=== PATIENT | male | born 1930 | race African-American/Black ===

== ENCOUNTER 2019-12-01 13:45 | Inpatient (IN) | payer MEDICARE ==
[~2019-12-01] VITALS: Ht 188 cm; Wt 94.1 kg
[2019-12-01] MEDS ORDERED: NORVASC10 MG PO ×2 (13:57→18:33)
[2019-12-01] MEDS ORDERED: ASPIRIN81 MG PO (13:58)
[2019-12-01] MEDS ORDERED: ISOSORBIDE DINI20 MG PO ×2 (13:58→18:33)
[2019-12-01] MEDS ORDERED: NITROQUICK0.4 MG SL (13:58)
[2019-12-01] MEDS ORDERED: HYDRALAZINE HCL25 MG PO ×2 (13:59→18:33)
[2019-12-01] MEDS ORDERED: COREG12.5 MG PO ×2 (13:59→18:34)
[2019-12-01] MEDS ORDERED: LIPITOR40 MG PO ×2 (13:59→18:34)
[2019-12-01] MEDS ORDERED: BRILINTA90 MG PO ×2 (14:00→18:32)
[2019-12-01 14:20] LABS: HEMATOCRIT 40.8 % (42.0-54.0); HEMOGLOBIN 13.4 g/dL (13.5-17.5); MCH 29.6 pg (26.0-34.0); MCHC 32.8 g/dL (31.0-37.0); MCV 90.1 fL (80.0-100.0); MEAN PLATELET VOLUME 10.7 fL (7.4-10.4); PLATELET COUNT 208 10x3/uL (130-400); RBC 4.53 10x6/uL (4.20-6.10); RDW 14.3 % (11.5-14.5); WBC 5.6 10x3/uL (4.8-10.8)
[2019-12-01 14:29] LABS: CALC OSMOLALITY 271 mosm/kg (275-300); CALCIUM 9.1 mg/dL (8.5-10.1); CARBON DIOXIDE 24.5 mmol/L (21.0-32.0); CHLORIDE - SERUM 102 mmol/L (98-107); CREATININE - SERUM 1.7 mg/dL (0.6-1.3); GLUCOSE 107 mg/dL (74-106); POTASSIUM - SERUM 4.4 mmol/L (3.5-5.1); SODIUM 134 mmol/L (136-145); UREA NITROGEN 25 mg/dL (7-18); eGFR NON AFRICAN AMERICAN 41 mL/min (90-120)
[2019-12-01 14:37] LABS: APTT 31.2 SECONDS (22.8-39.4); INR 0.96 (0.85-1.17); PROTIME 12.8 SECONDS (11.6-15.0)
[2019-12-01 14:44] LABS: EOSINOPHILS 3 % (0-7); LYMPHOCYTES 28 % (15-50); MONOCYTES 3 % (2-11); NEUTROPHILS 64 % (40-80); PLATELET ESTIMATE NORMAL
[2019-12-01 14:51] LABS: ALBUMIN 3.2 g/dL (3.4-5.0); ALKALINE PHOSPHATASE 64 U/L (30-120); ALT (SGPT) 49 U/L (10-68); CKMB 2.7 U/L (0.0-3.6); CREATINE KINASE 467 UL (21-232); PRO BNP 1720 pg/mL (0-450); PROTEIN - SERUM 8.2 g/dL (6.4-8.2)
[2019-12-01 14:52] LABS: TROPONIN-I 9.081 ng/mL (0.000-0.060)
--- NOTE | 2019-12-01 14:54 | NUR ---
CRITICAL LAB CALLED IN, NATI 9.854
[2019-12-01 15:21] VITALS: BP 143/99
[2019-12-01 16:30] VITALS: BP 133/99
--- NOTE | 2019-12-01 17:15 | NUR ---
PT TAKE TO CT AT THIS TIME
--- NOTE | 2019-12-01 17:29 | NUR ---
pt back from ct scan at this time
[2019-12-01 17:30] VITALS: BP 132/79
[2019-12-01] MEDS ORDERED: NITROSTAT0.4 MG SL (18:32)
[2019-12-01] MEDS ORDERED: BAYER CHEWABLE81 MG PO (18:33)
[2019-12-01 19:26] VITALS: BP 121/64
[2019-12-01 23:57] VITALS: BP 139/83; BMI 25.9
[2019-12-02 00:30] VITALS: BP 142/88
[2019-12-02 04:47] VITALS: BP 138/95
[2019-12-02 06:24] LABS: BASOPHILS 0 % (0-2); EOSINOPHILS 0 % (0-7); HEMATOCRIT 41.4 % (42.0-54.0); HEMOGLOBIN 13.3 g/dL (13.5-17.5); IMMATURE GRANULOCYTES 0.2 % (0-5); LYMPHOCYTES 11.1 % (15-50); MCH 29.1 pg (26.0-34.0); MCHC 32.1 g/dL (31.0-37.0); MCV 90.6 fL (80.0-100.0); MEAN PLATELET VOLUME 10.7 fL (7.4-10.4); NEUTROPHILS 87.7 % (40-80); PLATELET COUNT 205 10x3/uL (130-400); RBC 4.57 10x6/uL (4.20-6.10); RDW 14.4 % (11.5-14.5); WBC 4.9 10x3/uL (4.8-10.8)
[2019-12-02 06:44] LABS: ANION GAP 14.1 mmol/L (8-16); CARBON DIOXIDE 22.9 mmol/L (21.0-32.0); CREATININE - SERUM 1.5 mg/dL (0.6-1.3)
--- NOTE | 2019-12-02 07:00 | NUR ---
RECEIVED REPORT. ASSUMED CARE OF PATIENT. BEDSIDE SHIFT REPORT COMPLETE. WHITE BOARD UPDATED. CALL LIGHT WITHIN REACH. PATIENT RESTING ON RIGHT LATERAL SIDE. DENIES NEEDS. NO DISTRESS. SR ON TELEMETRY, RATE OF 79.
--- NOTE | 2019-12-02 08:28 | NUR ---
PT SON NOW AT BEDSIDE.
[2019-12-02 09:01] VITALS: BP 128/78
--- NOTE | 2019-12-02 11:57 | NUR ---
MEDICATED FOR CHEST PAIN. AFTER MORPHINE AND NITRO SL, PATIENT STATES CHEST PAIN IS MUCH BETTER. EKG COMPLETED AT THIS TIME. WAITING CARDIOLOGY CONSULT.
--- NOTE | 2019-12-02 12:16 | NUR ---
PERIPHERAL PULSES PATENT. NO HEMATOMA FORMATION TO RIGHT GROIN, DRESSING CLEAN DRY AND INTACT. PATIENT NOW IN REVERSE TRENDELENBERG CONSUMING NOON MEAL. NO DISTRESS. VS STABLE.
[2019-12-02 13:28] VITALS: BP 158/91
[2019-12-02 16:20] VITALS: BP 132/84
[2019-12-02 17:53] LABS: MAGNESIUM - SERUM 2.2 mg/dL (1.8-2.4)
--- NOTE | 2019-12-02 19:40 | NUR ---
REPORT RECIEVED AND INITIAL ROUNDS COMPLETED. PT RESTING IN BED. ALERT/ORIENTED. CHEMEHUEVI. SR PER TELEMETRY. IVF NS @ 75ML/HR INFUSING TO LEFT A/C. WEARING BRIEFS AND USING URINAL FOR VOIDING. SOME DRIBBLING INCONTINENCE. O2 OFF, ROOM AIR WITH GOOD O2 SAT. NO SOB. WILL MONITOR. NO WHEEZING AUSCULTATED. CPOC. CALL LIGHT IN REACH.
--- NOTE | 2019-12-02 23:45 | NUR ---
SON NOW AT BEDSIDE. ALL BEDTIME MEDS GIVEN. PT HUNGRY. PROVIDED SANDWICH TRAY. PT CLEAN/DRY BRIEF. VSS. CPOC.
[2019-12-03 00:30] VITALS: BP 121/64
--- NOTE | 2019-12-03 01:07 | NUR ---
PT WITH C/O LEFT CHEST PAIN. POINTS TO A SPECIFIC AREA TO LEFT OF STERNUM AND SAYING IT HURTS. SR/71 PER TELEMETRY. VSS. MEDICATED WITH MORPHINE 2MG SIVP AND ZOFRAN 4MG SIVP. CALL LIGHT IN REACH. CPOC.
--- NOTE | 2019-12-03 02:44 | NUR ---
IV SOLUMEDROL GIVEN. PT STATES CHEST PAIN ALMOST GONE. IVF INFUSING. CPOC.
[2019-12-03 05:00] VITALS: BP 107/63
--- NOTE | 2019-12-03 05:54 | NUR ---
PT HAS RESTED WELL SINCE RECIEVING IV MORPHINE. CPOC.
[2019-12-03 06:14] LABS: BASOPHILS 0 % (0-2); EOSINOPHILS 0 % (0-7); HEMATOCRIT 37.1 % (42.0-54.0); HEMOGLOBIN 11.9 g/dL (13.5-17.5); IMMATURE GRANULOCYTES 0.4 % (0-5); LYMPHOCYTES 4.6 % (15-50); MCH 28.9 pg (26.0-34.0); MCHC 32.1 g/dL (31.0-37.0); MEAN PLATELET VOLUME 10.9 fL (7.4-10.4); MONOCYTES 4.8 % (2-11); NEUTROPHILS 90.2 % (40-80); PLATELET COUNT 202 10x3/uL (130-400); RBC 4.12 10x6/uL (4.20-6.10); RDW 14.3 % (11.5-14.5)
[2019-12-03 06:15] LABS: WBC 11.2 10x3/uL (4.8-10.8)
[2019-12-03 06:38] LABS: ANION GAP 12.9 mmol/L (8-16); CALCIUM 8.4 mg/dL (8.5-10.1); CARBON DIOXIDE 23.6 mmol/L (21.0-32.0); CREATININE - SERUM 1.3 mg/dL (0.6-1.3); MAGNESIUM - SERUM 2.1 mg/dL (1.8-2.4); POTASSIUM - SERUM 4.5 mmol/L (3.5-5.1)
[2019-12-03 08:30] VITALS: BP 128/89
--- NOTE | 2019-12-03 11:22 | CN ---
PATIENT NAME:FANNY PALACIOS MEDICAL RECORD: [id number] : 34 LOCATION:[facility] D.2123 ADMIT DATE: 12/02/19 ACCOUNT: [id number] CONSULTING PHYSICIAN: TIMMY MARCIAL MD REFERRING PHYSICIAN: RADHA JONES MD DATE OF CONSULTATION: 12/02/2019 HISTORY OF PRESENT ILLNESS: An 89-year-old gentleman with a known cardiovascular history. He has a history of coronary artery disease, status post recent UT, who underwent a primary sent at that time has history of smoking about a pack a day since age 18, quit 16 years ago. EF on this admission shows EF 45% to 50%, admitted with marked dyspnea, wheezing, shortness of breath, and failure of rapid progress over the past 2-3 days. No lower extremity edema. Chest x-ray is consistent with obstructive pulmonary disease, noted to still have elevated troponin. We are asked to see him concerning his cardiovascular status. PAST MEDICAL HISTORY: Includes, 1. History of hypertension. 2. Hyperlipidemia. 3. Coronary artery disease as described above. 4. Obstructive pulmonary disease. ALLERGIES: None known. MEDICATIONS: Currently include amlodipine 5 mg p.o. daily, Brilinta 90 mg p.o. b.i.d., atorvastatin 40 mg every day, Coreg 12.5 b.i.d., hydralazine 37.5 b.i.d., Imdur 20 b.i.d., and aspirin 81 every day. SOCIAL HISTORY: He lives near [place]. He takes care of his ADLs. Quit smoking about 10 years ago, nondrinker. REVIEW OF SYSTEMS: The patient reports easy bruising but reports no swollen glands. The patient reports no fever, no night sweats, no significant weight gain, no significant weight loss. No significant exercise tolerance. The patient reports no dry eyes, no irritation, no vision change. Patient reports no difficulty hearing and no ear pain. Patient reports no frequent nose bleeds or nose and sinus problems. Patient reports on arm pain on exertion. No shortness of breath while lying down. No history of heart murmur. Patient reports no cough, no wheezing or coughing up blood. Patient reports no abdominal pain, no vomiting. Normal appetite. No diarrhea and not vomiting blood. No nausea and no constipation. Patient reports no incontinence. No difficulty urinating. No hematuria. No increased frequency. Patient reports no muscle aches. No weakness, no arthralgias, no back pain. No swelling of the extremities. Patient reports no abnormal mole, no jaundice, no rashes. Reports no loss of consciousness. No weakness and no numbness. No seizures, dizziness, or headaches. The patient reports no depression, no sleep disturbance, feeling safe in a relationship and no alcohol abuse. Patient reports on fatigue. Reports no runny nose or sinus pressure. No itching, no hives, and no frequent sneezing. PHYSICAL EXAMINATION: GENERAL: Pleasant female in no acute distress, appears stated age. VITAL SIGNS: Blood pressure 120/78, pulse 64 and regular. HEENT: Normocephalic, atraumatic. CONSULT REPORT [id number] FANNY PALACIOS NECK: No bruits noted. HEART: Regular. Heart tones are a little distant. LUNGS: Prolonged respiratory phase with expiratory wheezing throughout all lung stover. ABDOMEN: Soft, nontender. EXTREMITIES: Pulses 2+. No edema. DIAGNOSTIC DATA: EKG shows anterior Q-waves evolving anterior myocardial infarction. Echocardiogram shows anterior hypo with EF 45% to 50%. IMPRESSION: Obstructive pulmonary disease. Given normal EF, maybe exacerbated to a certain extent by his Brilinta. We will change this to Effient. The symptoms improve with his dyspnea as well. EF minimal reduced. Certainly does not appear to be myopathic process at this point. TRANSINT:[id number] Voice Confirmation ID: [id number] DOCUMENT ID: [id number] TIMMY MARCIAL MD at 1122 CC: [id number] DICTATION DATE: 12/02/19 1305 CAD DESIGN ENGINEER: 12/03/19 0043 ADM IN [facility] [address] [place] [address]
--- NOTE | 2019-12-03 11:22 | EC ---
PATIENT:FANNY PALACIOS DATE OF SERVICE: 12/02/19 SEX: M MEDICAL RECORD: [id number] DATE OF : 34 LOCATION:D.M2 D.212 AGE OF PATIENT: 89 ADMISSION DATE: 12/02/19 REFERRING PHYSICIAN: INTERPRETING PHYSICIAN: TIMMY MARCIAL MD ECHOCARDIOGRAM REPORT ECHO CHARGES 4 ECHO COMPLETE Date: 12/02/19 CLINICAL DIAGNOSIS: CHF RECENT STENTS ECHOCARDIOGRAPHIC MEASUREMENTS (adult normal given) AC root (d.<3.7cm) 3.9 cm LV Septum d (<1.2 cm> 1.3 cm Valve Excursion 1.2 cm LV Septum (systole) 1.4 cm Left Atria (s.<4.0cm> 4.0 cm LVPW d(<1.2cm) 1.4 cm RV (d.<2.3cm) 3.5 cm LVPW (sytole) 1.9 cm LV diastole(<5.6CM) 4.8 cm MV E-F(>70mm/sec) cm LV systole 3.1 cm LVOT Diameter 1.6 cm MV exc.(>10mm) 1.7 cm Est.ejection fraction (50-75%) % DOPPLER: LVIT cm/sec A 137.0cm/sec E 89.0 cm/sec LA cm/sec RVSP 38 mmHg LVOT 92 cm/sec AOP1/2T 1043 m/s Asc. Ao 121 cm/sec RVOT 62 cm/sec RA cm/sec PA 81 cm/sec AV Gradient Peak 5.90 mmHg AV Mean 3.10 mmHg AV Area 1.3 cm MV Gradient Peak 9.88 mmHg MV Mean 2.52 mmHg MV Area cm COMMENTS: Production Control Coordinating Clerk: 2 EBONY DE GUZMAN Business Transformation Analyst: 3 Dr. Romero TAPE# PACS Pericardial Effusion N DATE OF SERVICE: Adequate 2D, color flow imaging, spectral Doppler, and M-Mode. LVH is present. LV internal dimension is normal. There is hypokinesis secondary to the anterior apex. Overall, LV function lower limits of normal, mildly reduced at 45% to 50%. Aortic valve is sclerosed without stenosis by Doppler interrogation. Left atrium is normal at 4.0 cm. Mitral valve shows no prolapse. Mild MR. Right-sided chambers are grossly normal. Mild TR. ECHOCARDIOGRAM REPORT [id number] FANNY PALACIOS TRANSINT:[id number] Voice Confirmation ID: [id number] DOCUMENT ID: [id number] TIMMY MARCIAL MD at 1122 CC: [id number] DICTATION DATE: 12/02/19 1308 MILK DRIVER: 12/03/19 0057 ADM IN [facility] [address] [place] [address]
[2019-12-03 12:00] VITALS: BP 126/72
--- NOTE | 2019-12-03 14:24 | MORECARE ---
CASE MANAGEMENT DISCHARGE SUMMARY PATIENT: FANNY PALACIOS UNIT: [id number] ADM DATE: 12/02/19 AGE: 89 : 32 SEX: M ROOM/BED: D.3 AUTHOR: HERRERA ALCANTARA PHYSICIAN: REFERRING PHYSICIAN: RADHA JONES MD DATE OF SERVICE: 12/03/19 Discharge Plan Patient Name: FANNY PALACIOS [facility] [facility] 1930 Planned Disposition: Anticipated Discharge Date: Discharge Date: Expected LOS: Initial Reviewer: [email or web address] Initial Review Date: 12/01/2019 Generated: 12/03/19 3:23 pm DCPIA - Discharge Planning Initial Assessment Updated by [email or web address]: Dulce Maria Macias on 12/03/19 2:21 pm * Is the patient Alert and Oriented? No * Additional services required to return to the preadmission environment? Yes * Can the patient safely return to the preadmission environment? No * Has this patient been hospitalized within the prior 30 days at any hospital? Yes Patient Name: FANNY PALACIOS Page [phone] at 1424 All edits/amendments must be made on the electronic document DICTATION DATE: 12/03/191422 CONTINUOUS DRIER OPERATOR: MACIEL 12/03/19 142 RPT#: [id number] DC DATE: STATUS: ADM IN [facility] [address] [place] [address] END OF REPORT
[2019-12-03 14:34] VITALS: Ht 188 cm; Wt 94.1 kg
[2019-12-03 16:50] VITALS: BP 138/72
[2019-12-03 20:00] VITALS: BP 132/79
[2019-12-04] VITALS: BP 109/52
[2019-12-04 04:00] VITALS: BP 122/69
[2019-12-04 06:43] LABS: ANION GAP 11.1 mmol/L (8-16); CALCIUM 8.2 mg/dL (8.5-10.1); CARBON DIOXIDE 24.8 mmol/L (21.0-32.0); CREATININE - SERUM 1.5 mg/dL (0.6-1.3); POTASSIUM - SERUM 3.9 mmol/L (3.5-5.1)
[2019-12-04 06:49] LABS: BASOPHILS 0 % (0-2); EOSINOPHILS 0 % (0-7); HEMATOCRIT 36.2 % (42.0-54.0); HEMOGLOBIN 11.7 g/dL (13.5-17.5); IMMATURE GRANULOCYTES 0.7 % (0-5); LYMPHOCYTES 5.5 % (15-50); MCH 29.2 pg (26.0-34.0); MCHC 32.3 g/dL (31.0-37.0); MCV 90.3 fL (80.0-100.0); MEAN PLATELET VOLUME 10.6 fL (7.4-10.4); MONOCYTES 7.6 % (2-11); NEUTROPHILS 86.2 % (40-80); PLATELET COUNT 210 10x3/uL (130-400); RBC 4.01 10x6/uL (4.20-6.10); RDW 14.3 % (11.5-14.5)
--- NOTE | 2019-12-04 07:20 | NUR ---
RECIEVE REPORT. RESTING IN BED WITH EYES CLOSED. O2 @ 2L. NO SIGNS OF DISTRESS. CONTINUE PLAN OF CARE AND SAFETY PRECAUTIONS.
[2019-12-04 09:42] VITALS: BP 120/76
--- NOTE | 2019-12-04 16:04 | NUR ---
Rehab Note- Acute Inpatient Rehab prescreen order received. The patient has been seen by PT and continue to follow, also now with Covid test pending d/t now known exposure to neighbor. Will continue to follow at this time. Thank you for this referral! Sarah Smith RN Clinical Liaison, [facility] Rehab
--- NOTE | 2019-12-04 19:00 | NUR ---
RECEIVED BEDSIDE REPORT. PATIENT IS ALERT AND ORIENTED, RESTING COMFORTABLY IN BED. RESPIRATIONS ARE EVEN AND UNLABORED. NO S/S OF DISTRESS. NO C/O PAIN. CALL LIGHT WITHIN REACH. WILL CPOC.
[2019-12-04 20:00] VITALS: BP 119/53
[2019-12-05] VITALS: BP 133/70
[2019-12-05 04:00] VITALS: BP 109/63
[2019-12-05 05:07] LABS: BASOPHILS 0 % (0-2); EOSINOPHILS 0 % (0-7); HEMATOCRIT 37.9 % (42.0-54.0); HEMOGLOBIN 12.3 g/dL (13.5-17.5); IMMATURE GRANULOCYTES 0.9 % (0-5); LYMPHOCYTES 6.3 % (15-50); MCH 29.1 pg (26.0-34.0); MCHC 32.5 g/dL (31.0-37.0); MCV 89.8 fL (80.0-100.0); MEAN PLATELET VOLUME 10.4 fL (7.4-10.4); MONOCYTES 3.8 % (2-11); PLATELET COUNT 224 10x3/uL (130-400); RBC 4.22 10x6/uL (4.20-6.10); RDW 14.2 % (11.5-14.5); WBC 9.3 10x3/uL (4.8-10.8)
[2019-12-05 05:27] LABS: ANION GAP 10.5 mmol/L (8-16); CALCIUM 8.1 mg/dL (8.5-10.1); CARBON DIOXIDE 25.5 mmol/L (21.0-32.0); CREATININE - SERUM 1.3 mg/dL (0.6-1.3); MAGNESIUM - SERUM 2.2 mg/dL (1.8-2.4)
--- NOTE | 2019-12-05 07:20 | NUR ---
RECIEVE REPORT. RESTING IN BED WITH EYES CLOSED. NO SIGNS OF DISTRESS. SINUS RYTHM ON TELEMETRY. CONTINUE PLAN OF CARE AND SAFETY PRECAUTIONS.
[2019-12-05 09:41] VITALS: BP 140/84
--- NOTE | 2019-12-05 13:03 | NUR ---
Patient's COVID test results are negative. He meets criteria for the ARU and will be accepted when medically stable for discharge to rehab. Brianda Hendrickson RN Clinical liaison, Rehab
[2019-12-05 13:43] VITALS: BP 134/78
[2019-12-05 20:00] VITALS: BP 130/82
--- NOTE | 2019-12-05 21:22 | NUR ---
HS MEDS GIVEN WITH FRESH ICE WATER. PT DENIES PAIN OR NEEDS, BED LOW, CL IN REACH.
--- NOTE | 2019-12-05 23:13 | NUR ---
CL ANSWERD, PT STATED THAT HE DIDNT MEAN TO PUSH BUTTON. SON AT BED SIDE, BED LOW, CL IN REACH.
[2019-12-06] VITALS: BP 126/75
--- NOTE | 2019-12-06 02:46 | NUR ---
RESTING WITH EYES CLOSED, RESPERATIONS EVEN, NO S/S DISTRESS NOTED.
[2019-12-06 04:00] VITALS: BP 139/84
[2019-12-06 05:37] LABS: BASOPHILS 0 % (0-2); EOSINOPHILS 0 % (0-7); HEMOGLOBIN 13.1 g/dL (13.5-17.5); IMMATURE GRANULOCYTES 1.2 % (0-5); LYMPHOCYTES 7.4 % (15-50); MCHC 32.8 g/dL (31.0-37.0); MCV 88.7 fL (80.0-100.0); MEAN PLATELET VOLUME 10.5 fL (7.4-10.4); MONOCYTES 5.9 % (2-11); NEUTROPHILS 85.5 % (40-80); PLATELET COUNT 258 10x3/uL (130-400); RBC 4.51 10x6/uL (4.20-6.10); WBC 10.9 10x3/uL (4.8-10.8)
[2019-12-06 06:02] LABS: ANION GAP 9.5 mmol/L (8-16); CALCIUM 8.4 mg/dL (8.5-10.1); CARBON DIOXIDE 25.4 mmol/L (21.0-32.0); CREATININE - SERUM 1.4 mg/dL (0.6-1.3); MAGNESIUM - SERUM 2.2 mg/dL (1.8-2.4); POTASSIUM - SERUM 3.9 mmol/L (3.5-5.1)
[2019-12-06 11:22] VITALS: BP 150/83
[2019-12-06] MEDS ORDERED: IPRAT-ALBUT 0.5-3 ML UPD (12:10)
[2019-12-06] MEDS ORDERED: PULMICORT0.5 MG/21 UPD (12:11)
[2019-12-06] MEDS ORDERED: TESSALON PERLE100 MG PO (12:11)
[2019-12-06] MEDS ORDERED: MUCINEX DM ER1 EAC1 PO (12:11)
[2019-12-06] MEDS ORDERED: PREDNISONE10 MG PO (12:13)
[2019-12-06] MEDS ORDERED: VIBRAMYCIN 100100 MG PO (12:17)
--- NOTE | 2019-12-06 12:54 | NUR ---
Nutrition Follow-up: Pt reports good appetite/PO intake. Noted plans to d/c today. Diet: Regular PO intake: 88% avg x 9 meals Wt: 207# (12/04); 201.7# (12/02) Last BM: 12/05 Labs noted: Glu 159, Ca 8.4 Meds noted: Prednisone, Protonix, electrolyte protocol -Encourage PO intake and honor food preferences. -Monitor wt; noted daily wts ordered. -RD following.
[2019-12-06 14:57] VITALS: BP 127/50
--- NOTE | 2019-12-06 15:35 | NUR ---
[facility] OXYGEN TO BRING PORTABLE TANK.
--- NOTE | 2019-12-06 16:24 | MORECARE ---
CASE MANAGEMENT DISCHARGE SUMMARY PATIENT: FANNY PALACIOS UNIT: [id number] ADM DATE: 12/02/19 AGE: 89 : 32 SEX: M ROOM/BED: D.2122 AUTHOR: HERRERA ALCANTARA PHYSICIAN: REFERRING PHYSICIAN: RADHA JONES MD DATE OF SERVICE: 12/06/19 Discharge Plan Patient Name: FANNY PALACIOS [facility] [facility] 1930 Planned Disposition: Anticipated Discharge Date: Discharge Date: Expected LOS: Initial Reviewer: [email or web address] Initial Review Date: 12/01/2019 Generated: 12/06/19 5:23 pm DCPIA - Discharge Planning Initial Assessment Updated by [email or web address]: Dulce Maria Macias on 12/03/19 2:21 pm * Is the patient Alert and Oriented? No * Additional services required to return to the preadmission environment? Yes * Can the patient safely return to the preadmission environment? No * Has this patient been hospitalized within the prior 30 days at any hospital? Yes External Providers External Provider: [facility] [place] Next Contact Date: Service Request Date: Service Type: Resolution: Reviewer: Comments: Last DP export: 12/03/19 1:24 pm Patient Name: FANNY PALACIOS Page [phone] at 1624 All edits/amendments must be made on the electronic document DICTATION DATE: 12/06/19 162 TALENT ACQUISITION ASSOCIATE: MACILE 12/06/19 1623 RPT#: [id number] DC DATE: STATUS: ADM IN [facility] [address] [place] [address] END OF REPORT
--- NOTE | 2019-12-06 16:31 | MORECARE ---
CASE MANAGEMENT DISCHARGE SUMMARY PATIENT: FANNY PALACIOS UNIT: [id number] ADM DATE: 12/02/19 AGE: 89 : 32 SEX: M ROOM/BED: D.3 AUTHOR: HERRERA ALCANTARA PHYSICIAN: REFERRING PHYSICIAN: RADHA JONES MD DATE OF SERVICE: 12/06/19 Discharge Plan Patient Name: FANNY PALACIOS [facility] [facility] 1930 Planned Disposition: Anticipated Discharge Date: Discharge Date: Expected LOS: Initial Reviewer: [email or web address] Initial Review Date: 12/01/2019 Generated: 12/06/19 5:30 pm DCPIA - Discharge Planning Initial Assessment Updated by [email or web address]: Dulce Maria Macias on 12/03/19 2:21 pm * Is the patient Alert and Oriented? No * Additional services required to return to the preadmission environment? Yes * Can the patient safely return to the preadmission environment? No * Has this patient been hospitalized within the prior 30 days at any hospital? Yes Last DP export: 12/06/19 3:24 pm Patient Name: FANNY PALACIOS Page [phone] at 1631 All edits/amendments must be made on the electronic document DICTATION DATE: 12/06/19 163 REPROGRAPHICS TECHNICIAN: MACIEL 12/06/19 1630 RPT#: [id number] DC DATE: STATUS: ADM IN [facility] [address] [place] [address] END OF REPORT
--- NOTE | 2019-12-06 17:41 | NUR ---
PT DISCHARGED HOME VIA WHEELCHAIR WITH FAMILY. PIV REMOVED WITH CATHETER TIP FULLY INTACT. PT SIGNED PROPER DISCHARGE INSTRUCTIONS AND REMOVED ALL VALUABLES FROM THE ROOM. TELEMETRY REMOVED AND RETURNED.
--- NOTE | 2019-12-06 18:22 | MORECARE ---
CASE MANAGEMENT DISCHARGE SUMMARY PATIENT: FANNY PALACIOS UNIT: [id number] ADM DATE: 12/02/19 AGE: 89 : 32 SEX: M ROOM/BED: D.4143 AUTHOR: QUINTON,DOC PHYSICIAN: REFERRING PHYSICIAN: RADHA JONES MD DATE OF SERVICE: 12/06/19 Discharge Plan Patient Name: FANNY PALACIOS Facility: [facility]:[place] : 1930 Planned Disposition: Anticipated Discharge Date: Discharge Date: 12/06/2019 Expected LOS: Initial Reviewer: [email or web address] Initial Review Date: 12/01/2019 Generated: 12/06/19 7:22 pm Comments DCP- Discharge Planning Updated by [email or web address]: Dulce Maria Macias on 12/06/19 5:[address] Patient Name: FANNY PALACIOS Admission Status: ER Accout number: [id number] Admission Date: 12-02-2019 : 1930 Admission Diagnosis:SHORTNESS OF BREATH Attending: NII Current LOS: 4 Anticipated DC Date: Planned Disposition: Primary Insurance: MEDICARE A & B Discharge Planning Comments: CM met with patient to complete initial dc planning assessment. CM educated patient on the CM role and verbal consent given by patient to complete assessment. CM verified patient's address, phone number, and emergency contact phone numbers. Patient lives at home alone, but is unable to live alone anymore. CM spoke with his son Aman at [phone] and stated his father will move in with him, and feels this is a safe discharge. The patient has been on oxygen during admission, and a walk test showed the patient will require oxygen for home use. [facility] signed for [facility] for oxygen and nebulizers. CM spoke with David who provided a tank to room. CM discussed availability of home health, rehab services, and medical equipment. The patient and his son feel home health will be beneficial. [facility] signed for [facility]. CM spoke with Stanton at [facility] who picked up referral packet. the patient will be seen in the morning. Patient denied known discharge needs at this time. Transportation provider at discharge will be Aman. DC IMM delivered, explained, signed by the patient, and placed in chart. Signed form also left with the patient. CM will continue to follow and will assist as needed with dc plans/needs. Electrical Products Engineer: Dulce Maria Macias DCPIA - Discharge Planning Initial Assessment Updated by [id number]: Dulce Maria Macias on 12/03/19 2:21 pm * Is the patient Alert and Oriented? No * Additional services required to return to the preadmission environment? Yes * Can the patient safely return to the preadmission environment? No * Has this patient been hospitalized within the prior 30 days at any hospital? Yes Last DP export: 12/06/19 3:31 pm Patient Name: FANNY PALACIOS Page [phone] at 1822 All edits/amendments must be made on the electronic document DICTATION DATE: 12/06/191821 APPLICATIONS SUPPORT LEAD: MACIEL 12/06/191821 RPT#: [id number] DC DATE:12/06/19 STATUS: DIS IN [facility] [address] [place] [address] END OF REPORT
--- NOTE | 2019-12-07 14:27 | MORECARE ---
CASE MANAGEMENT DISCHARGE SUMMARY PATIENT: FANNY PALACIOS UNIT: [id number] ADM DATE: 12/02/19 AGE: 89 : 32 SEX: M ROOM/BED: D.7213 AUTHOR: QUINTON,DOC PHYSICIAN: REFERRING PHYSICIAN: RADHA JONES MD DATE OF SERVICE: 12/07/19 Discharge Plan Patient Name: FANNY PALACIOS Facility: [facility]:[place] : 1930 Planned Disposition: Anticipated Discharge Date: Discharge Date: 12/06/2019 Expected LOS: Initial Reviewer: [email or web address] Initial Review Date: 12/01/2019 Generated: 12/07/19 3:27 pm Comments DCP- Discharge Planning Updated by [email or web address]: Dulce Maria Macias on 12/06/19 5:[address] Patient Name: FANNY PALACIOS Admission Status: ER Accout number: [id number] Admission Date: 12-02-2019 : 1930 Admission Diagnosis:SHORTNESS OF BREATH Attending: NII Current LOS: 4 Anticipated DC Date: Planned Disposition: Primary Insurance: MEDICARE A & B Discharge Planning Comments: CM met with patient to complete initial dc planning assessment. CM educated patient on the CM role and verbal consent given by patient to complete assessment. CM verified patient's address, phone number, and emergency contact phone numbers. Patient lives at home alone, but is unable to live alone anymore. CM spoke with his son Aman at [phone] and stated his father will move in with him, and feels this is a safe discharge. The patient has been on oxygen during admission, and a walk test showed the patient will require oxygen for home use. [facility] signed for [facility] for oxygen and nebulizers. CM spoke with David who provided a tank to room. CM discussed availability of home health, rehab services, and medical equipment. The patient and his son feel home health will be beneficial. [facility] signed for [facility]. CM spoke with Stanton at [facility] who picked up referral packet. the patient will be seen in the morning. Patient denied known discharge needs at this time. Transportation provider at discharge will be Aman. DC IMM delivered, explained, signed by the patient, and placed in chart. Signed form also left with the patient. CM will continue to follow and will assist as needed with dc plans/needs. Terrazzo Layer: Dulce Maria Macias DCPIA - Discharge Planning Initial Assessment Updated by [email or web address]: Dulce Maria Macias on 12/03/19 2:21 pm * Is the patient Alert and Oriented? No * Additional services required to return to the preadmission environment? Yes * Can the patient safely return to the preadmission environment? No * Has this patient been hospitalized within the prior 30 days at any hospital? Yes External Providers External Provider: OTHER-OTHER Next Contact Date: Service Request Date: Service Type: Resolution: Reviewer: Comments: Last DP export: 12/06/19 5:22 pm Patient Name: FANNY PALACIOS Page [phone] at 1427 All edits/amendments must be made on the electronic document DICTATION DATE: 12/07/191426 LAND LEASING EXAMINER: MACIEL 12/07/19 1427 RPT#: [id number] DC DATE:12/06/19 STATUS: DIS IN [facility] [address] [place] [address] END OF REPORT
--- NOTE | 2019-12-07 14:35 | MORECARE ---
CASE MANAGEMENT DISCHARGE SUMMARY PATIENT: FANNY PALACIOS UNIT: [id number] ADM DATE: 12/02/19 AGE: 89 : 32 SEX: M ROOM/BED: D.3233 AUTHOR: QUINTON,DOC PHYSICIAN: REFERRING PHYSICIAN: RADHA JONES MD DATE OF SERVICE: 12/07/19 Discharge Plan Patient Name: FANNY PALACIOS Facility: [facility]:[place] : 1930 Planned Disposition: Anticipated Discharge Date: Discharge Date: 12/06/2019 Expected LOS: Initial Reviewer: [email or web address] Initial Review Date: 12/01/2019 Generated: 12/07/19 3:35 pm Comments DCP- Discharge Planning Updated by [email or web address]: Dulce Maria Macias on 12/06/19 5:[address] Patient Name: FANNY PALACIOS Admission Status: ER Accout number: [id number] Admission Date: 12-02-2019 : 1930 Admission Diagnosis:SHORTNESS OF BREATH Attending: NII Current LOS: 4 Anticipated DC Date: Planned Disposition: Primary Insurance: MEDICARE A & B Discharge Planning Comments: CM met with patient to complete initial dc planning assessment. CM educated patient on the CM role and verbal consent given by patient to complete assessment. CM verified patient's address, phone number, and emergency contact phone numbers. Patient lives at home alone, but is unable to live alone anymore. CM spoke with his son Aman at [phone] and stated his father will move in with him, and feels this is a safe discharge. The patient has been on oxygen during admission, and a walk test showed the patient will require oxygen for home use. [facility] signed for [facility] for oxygen and nebulizers. CM spoke with David who provided a tank to room. CM discussed availability of home health, rehab services, and medical equipment. The patient and his son feel home health will be beneficial. [facility] signed for [facility]. CM spoke with Stanton at [facility] who picked up referral packet. the patient will be seen in the morning. Patient denied known discharge needs at this time. Transportation provider at discharge will be Aman. DC IMM delivered, explained, signed by the patient, and placed in chart. Signed form also left with the patient. CM will continue to follow and will assist as needed with dc plans/needs. Welder Experimental: Dulce Maria Macias DCPIA - Discharge Planning Initial Assessment Updated by [email or web address]: Dulce Maria Macias on 12/03/19 2:21 pm * Is the patient Alert and Oriented? No * Additional services required to return to the preadmission environment? Yes * Can the patient safely return to the preadmission environment? No * Has this patient been hospitalized within the prior 30 days at any hospital? Yes External Providers External Provider: [facility] Next Contact Date: Service Request Date: Service Type: Resolution: Reviewer: Comments: Last DP export: 12/07/19 1:27 p Patient Name: FANNY PALACIOS Page [phone] at 1435 All edits/amendments must be made on the electronic document DICTATION DATE: 12/07/19 1435 STATEMENT DISTRIBUTION CLERK: MACIEL 12/07/19 1435 RPT#: [id number] DC DATE:12/06/19 STATUS: DIS IN [facility] [address] [place] [address] END OF REPORT
--- NOTE | 2019-12-07 16:22 | MORECARE ---
CASE MANAGEMENT DISCHARGE SUMMARY PATIENT: FANNY PALACIOS UNIT: [id number] ADM DATE: 12/02/19 AGE: 89 : 32 SEX: M ROOM/BED: D.2293 AUTHOR: QUINTON,DOC PHYSICIAN: REFERRING PHYSICIAN: RADHA JONES MD DATE OF SERVICE: 12/07/19 Discharge Plan Patient Name: FANNY PALACIOS Facility: [facility] : 1930 Planned Disposition: Anticipated Discharge Date: Discharge Date: 12/06/2019 Expected LOS: Initial Reviewer: [email or web address] Initial Review Date: 12/01/2019 Generated: 12/07/19 5:21 pm Comments DCP- Discharge Planning Updated by [email or web address]: Dulce Maria Macias on 12/06/19 5:[address] Patient Name: FANNY PALACIOS Admission Status: ER Accout number: [id number] Admission Date: 12-02-2019 : 1930 Admission Diagnosis:SHORTNESS OF BREATH Attending: NII Current LOS: 4 Anticipated DC Date: Planned Disposition: Primary Insurance: MEDICARE A & B Discharge Planning Comments: CM met with patient to complete initial dc planning assessment. CM educated patient on the CM role and verbal consent given by patient to complete assessment. CM verified patient's address, phone number, and emergency contact phone numbers. Patient lives at home alone, but is unable to live alone anymore. CM spoke with his son Aman at [phone] and stated his father will move in with him, and feels this is a safe discharge. The patient has been on oxygen during admission, and a walk test showed the patient will require oxygen for home use. [facility] signed for [facility] for oxygen and nebulizers. CM spoke with David who provided a tank to room. CM discussed availability of home health, rehab services, and medical equipment. The patient and his son feel home health will be beneficial. [facility] signed for [facility]. CM spoke with Stanton at [facility] who picked up referral packet. the patient will be seen in the morning. Patient denied known discharge needs at this time. Transportation provider at discharge will be Aman. DC IMM delivered, explained, signed by the patient, and placed in chart. Signed form also left with the patient. CM will continue to follow and will assist as needed with dc plans/needs. Triage Nurse: Dulce Maria Macias DCPIA - Discharge Planning Initial Assessment Updated by [id number]: Dulce Maria Macias on 12/03/19 2:21 pm * Is the patient Alert and Oriented? No * Additional services required to return to the preadmission environment? Yes * Can the patient safely return to the preadmission environment? No * Has this patient been hospitalized within the prior 30 days at any hospital? Yes External Providers External Provider: [facility] Next Contact Date: Service Request Date: Service Type: Resolution: Reviewer: Comments: Last DP export: 12/07/19 1:36 p Patient Name: FANNY PALACIOS Page [phone] at 1622 All edits/amendments must be made on the electronic document DICTATION DATE: 12/07/191620 PRESTRESSED CONCRETE LABORER: MACIEL 12/07/191620 RPT#: [id number] DC DATE:12/06/19 STATUS: DIS IN [facility] [address] [place] [address] END OF REPORT
== END 2019-12-06 17:42 | disposition home health service (06) | DRG 193 ==
LOC: D.ER 13:45 → OBSVTIME 18:16 → D.M2 18:16
PROVIDERS: Family Medicine; ADMIT Family Medicine; ATTEND Family Medicine
DX: J18.9 Pneumonia, unspecified organism (principal); J96.01 Acute respiratory failure with hypoxia; I50.23 Acute on chronic systolic (congestive) heart failure; N17.9 Acute kidney failure, unspecified; J98.11 Atelectasis; I25.10 Atherosclerotic heart disease of native coronary artery without angina pectoris; D64.9 Anemia, unspecified; R73.9 Hyperglycemia, unspecified; J43.9 Emphysema, unspecified; F41.9 Anxiety disorder, unspecified; I11.0 Hypertensive heart disease with heart failure; E78.5 Hyperlipidemia, unspecified; N28.1 Cyst of kidney, acquired; Z87.891 Personal history of nicotine dependence

== ENCOUNTER 2019-12-12 02:41 | Inpatient (IN) | payer MEDICARE ==
[~2019-12-12] VITALS: Ht 188 cm; Wt 91.2 kg
[2019-12-12] VITALS (18 sets, daily range): BP systolic 124–177; BP diastolic 66–148; BMI 25.8
[~2019-12-12 02:41] MED LIST: ASPIRIN81 MG PO; BAYER CHEWABLE81 MG PO; BRILINTA90 MG PO; COREG12.5 MG PO; HYDRALAZINE HCL25 MG PO; IPRAT-ALBUT 0.5-3 ML UPD; ISOSORBIDE DINI20 MG PO; LIPITOR40 MG PO; MUCINEX DM ER1 EAC1 PO; NITROQUICK0.4 MG SL; NITROSTAT0.4 MG SL; NORVASC10 MG PO; PREDNISONE10 MG PO; PULMICORT0.5 MG/21 UPD; TESSALON PERLE100 MG PO; VIBRAMYCIN 100100 MG PO
[2019-12-12 03:49] LABS: HEMATOCRIT 38.6 % (42.0-54.0); HEMOGLOBIN 12.3 g/dL (13.5-17.5); LYMPHOCYTES 5.8 % (15-50); MCH 28.8 pg (26.0-34.0); MCHC 31.9 g/dL (31.0-37.0); MCV 90.4 fL (80.0-100.0); MEAN PLATELET VOLUME 10.1 fL (7.4-10.4); NEUTROPHILS 87.5 % (40-80); PLATELET COUNT 226 10x3/uL (130-400); RBC 4.27 10x6/uL (4.20-6.10); RDW 14.9 % (11.5-14.5); WBC 12.8 10x3/uL (4.8-10.8)
[2019-12-12 04:01] LABS: CALC OSMOLALITY 281 mosm/kg (275-300); CARBON DIOXIDE 27.5 mmol/L (21.0-32.0); CHLORIDE - SERUM 104 mmol/L (98-107); CREATININE - SERUM 1.4 mg/dL (0.6-1.3); GLUCOSE 115 mg/dL (74-106); POTASSIUM - SERUM 4.3 mmol/L (3.5-5.1); SODIUM 138 mmol/L (136-145); UREA NITROGEN 27 mg/dL (7-18); eGFR NON AFRICAN AMERICAN 51 mL/min (90-120)
[2019-12-12 04:08] LABS: APTT 24.9 SECONDS (22.8-39.4); INR 1.08 (0.85-1.17); PROTIME 13.9 SECONDS (11.6-15.0)
[2019-12-12 04:20] LABS: ALBUMIN 2.5 g/dL (3.4-5.0); ALKALINE PHOSPHATASE 60 U/L (30-120); ALT (SGPT) 36 U/L (10-68); BILIRUBIN - TOTAL 0.63 mg/dL (0.2-1.3); CKMB 1.4 U/L (0.0-3.6); CREATINE KINASE 109 UL (21-232); MAGNESIUM - SERUM 1.8 mg/dL (1.8-2.4)
[2019-12-12 04:28] LABS: TROPONIN-I 0.199 ng/mL (0.000-0.060)
--- NOTE | 2019-12-12 06:35 | NUR ---
IV R AC INFILTRATED. REMOVED ATTEMPTED TO RESITE X 2
--- NOTE | 2019-12-12 07:06 | NUR ---
PIC LINE TO BE OBTAINED
--- NOTE | 2019-12-12 07:22 | NUR ---
PERIPHERAL IV 20 GAUGE CATHETER INSERTED IN RIGHT UPPER ARM. IV INFUSION STARTED
--- NOTE | 2019-12-12 08:39 | NUR ---
IN ROOM TO MARIA ALEJANDRA CASTRO
--- NOTE | 2019-12-12 10:00 | NUR ---
COVID 19 TEST COLLECTED AND SENT TO LAB.
[2019-12-12 13:56] LABS: UDS - AMPHET NEGATIVE QUAL (NEGATIVE); UDS - BARB NEGATIVE QUAL (NEGATIVE); UDS - BENZO NEGATIVE QUAL (NEGATIVE); UDS - COCAINE NEGATIVE QUAL (NEGATIVE); UDS - OPIATE NEGATIVE QUAL (NEGATIVE); UDS - PCP NEGATIVE QUAL (NEGATIVE); UDS - THC NEGATIVE QUAL (NEGATIVE)
--- NOTE | 2019-12-12 15:00 | NUR ---
PT VERY RESTLESS. UP AND DOWN ON SIDE OF BED. TERRY PLACED 16 BURKINAN USING STERILE TECHNIQUE.
--- NOTE | 2019-12-12 15:45 | NUR ---
MOVED TO ROOM 2316 FOR BIPAP.
--- NOTE | 2019-12-12 17:45 | NUR ---
ANSWERING SERVICE CALLED. INSTRUCT CONSULT.
[2019-12-13] VITALS (24 sets, daily range): BP systolic 118–174; BP diastolic 69–960; BMI 25.8
[2019-12-13 04:25] LABS: HEMATOCRIT 36.6 % (42.0-54.0); HEMOGLOBIN 11.8 g/dL (13.5-17.5); LYMPHOCYTES 3.7 % (15-50); MCH 29.5 pg (26.0-34.0); MCHC 32.2 g/dL (31.0-37.0); MCV 91.5 fL (80.0-100.0); MEAN PLATELET VOLUME 9.9 fL (7.4-10.4); NEUTROPHILS 90.8 % (40-80); RDW 14.9 % (11.5-14.5)
[2019-12-13 04:29] LABS: PLATELET COUNT 175 10x3/uL (130-400); WBC 9.5 10x3/uL (4.8-10.8)
[2019-12-13 04:39] LABS: ALBUMIN 2.3 g/dL (3.4-5.0); ANION GAP 16.1 mmol/L (8-16); BILIRUBIN - TOTAL 1.03 mg/dL (0.2-1.3); CALCIUM 8.2 mg/dL (8.5-10.1); CARBON DIOXIDE 23.3 mmol/L (21.0-32.0); CREATININE - SERUM 1.5 mg/dL (0.6-1.3); MAGNESIUM - SERUM 2.1 mg/dL (1.8-2.4); POTASSIUM - SERUM 4.4 mmol/L (3.5-5.1); PROTEIN - SERUM 6.3 g/dL (6.4-8.2)
--- NOTE | 2019-12-13 07:00 | NUR ---
AWAKEN OFF BIPAP ON 3 LITERS HIGHFLOW. UP IN CHAIR FOR BREAKFAST.
--- NOTE | 2019-12-13 09:00 | NUR ---
UP IN CHAIR. NO CO AT TIME.
--- NOTE | 2019-12-13 11:08 | NUR ---
SLEEPING NO DISTRESS NOTED. SR UP X 2. CALL LIGHT WITHIN REACH.
--- NOTE | 2019-12-13 11:08 | NUR ---
O2 INCREASE TO 9 LITERS HIGHFLOW.
[2019-12-14] VITALS (24 sets, daily range): BP systolic 136–188; BP diastolic 80–102
--- NOTE | 2019-12-14 07:30 | NUR ---
PT SLUMPED IN BED. ASSISTED X2 UP IN BED, PT STATES HE FEELS BETTER. AUDIBLE WHEEZING NOTED AND RR EVEN AND 42RR/MIN ON 9L HF NC. ATTEMPTED TO PUT BIPAP BACK ON. PT STATED HE WAS FINE AND WANTED TO EAT FIRST. ASSISTED WITH SETTING UP TRAY. DENIED NEEDING ASSISTANCE EATING. WAS ABLE TO SWALLOW WITHOUT DIFFICULTY. HOB @ 60 DEGREES. CALL LIGHT WITHIN REACH. BED IN LOWEST POSITION. TOLD PT TO CALL CUSTOMER CARE COORDINATOR LIGHT WHEN HE WAS THROUGH SO HE COULD BE PLACED BACK ON BIPAP. STATED HE WOULD. WILL CONTINUE TO MONITOR.
[2019-12-14 08:07] LABS: HEMATOCRIT 38.3 % (42.0-54.0); HEMOGLOBIN 12.3 g/dL (13.5-17.5); MCH 29.4 pg (26.0-34.0); MCHC 32.1 g/dL (31.0-37.0); MCV 91.4 fL (80.0-100.0); MEAN PLATELET VOLUME 10.7 fL (7.4-10.4); NEUTROPHILS 89.1 % (40-80); PLATELET COUNT 169 10x3/uL (130-400); RBC 4.19 10x6/uL (4.20-6.10); RDW 14.9 % (11.5-14.5); WBC 10.6 10x3/uL (4.8-10.8)
[2019-12-14 08:23] LABS: ALBUMIN 2.1 g/dL (3.4-5.0); ANION GAP 12.2 mmol/L (8-16); BILIRUBIN - TOTAL 0.66 mg/dL (0.2-1.3); CALCIUM 8.3 mg/dL (8.5-10.1); CARBON DIOXIDE 27.5 mmol/L (21.0-32.0); CREATININE - SERUM 1.2 mg/dL (0.6-1.3); MAGNESIUM - SERUM 2.3 mg/dL (1.8-2.4); POTASSIUM - SERUM 4.7 mmol/L (3.5-5.1); PROTEIN - SERUM 6.3 g/dL (6.4-8.2)
--- NOTE | 2019-12-14 08:30 | NUR ---
PT PLACED BACK ON BIPAP BY RESPIRATORY THERAPIST
--- NOTE | 2019-12-14 09:12 | NUR ---
Nutrition follow-up: Pt COVID+ isolation Diet: Low sodium PO intake ~50% of meals Labs reviewed Wt: 200# RDN following.
--- NOTE | 2019-12-14 12:30 | EC ---
PATIENT:FANNY PALACIOS DATE OF SERVICE: 12/12/19 SEX: M MEDICAL RECORD: [id number] DATE OF : 34 LOCATION:[facility] D231 AGE OF PATIENT: 89 ADMISSION DATE: 12/12/19 REFERRING PHYSICIAN: INTERPRETING PHYSICIAN: TIMMY MARCIAL MD ECHOCARDIOGRAM REPORT ECHO CHARGES 5 ECHO LIMITED Date: 12/13/19 CLINICAL DIAGNOSIS: DYSPNEA ECHOCARDIOGRAPHIC MEASUREMENTS (adult normal given) AC root (d.<3.7cm) 0 cm LV Septum d (<1.2 cm> 0 cm Valve Excursion 0 cm LV Septum (systole) 0 cm Left Atria (s.<4.0cm> 0 cm LVPW d(<1.2cm) 0 cm RV (d.<2.3cm) 0 cm LVPW (sytole) 0 cm LV diastole(<5.6CM) 0 cm MV E-F(>70mm/sec) 0 cm LV systole 0 cm LVOT Diameter 0 cm MV exc.(>10mm) 0 cm Est.ejection fraction (50-75%) 0 % DOPPLER: LVIT cm/sec A 0 cm/sec E 0 cm/sec LA 0 cm/sec RVSP 18.3 mmHg LVOT 0 cm/sec AOP1/2T m/s Asc. Ao 0 cm/sec RVOT 0 cm/sec RA 0 cm/sec PA 0 cm/sec AV Gradient Peak 0 mmHg AV Mean 0 mmHg AV Area 0 cm MV Gradient Peak 0 mmHg MV Mean 0 mmHg MV Area 0 cm COMMENTS: Forest Officer: Derek [facility] Electrical Tests Supervisor: 3 Dr. Romero TAPE# PACS Pericardial Effusion N DATE OF SERVICE: This is a limited 2D, color flow. Grossly LVH appears present. LV internal dimensions are normal. There is a global hypokinesis and more marked anterior apical hypokinesis. Overall, LV function appears to be reduced at 35% to 40%. Aortic valve is tricuspid. Good valve excursion and mild AI. Left atrium appears normal. Mitral valve appears normal with mild MR. Right-sided chambers are grossly normal. Mild TR. ECHOCARDIOGRAM REPORT [id number] FANNY PALACIOS TRANSINT:[id number] Voice Confirmation ID: [id number] DOCUMENT ID: [id number] TIMMY MARCIAL MD at 1230 CC: [id number] DICTATION DATE: 12/13/19 1607 SAND MIXER: 12/13/19 1848 ADM IN [place] [id number] [place] [id number]
--- NOTE | 2019-12-14 16:30 | NUR ---
PT SLUMPED IN BED. WAS ABLE TO PULL HIMSELF UP IN BED. RR LABORED. PT PLACED BACK ON BIPAP. 1700- ASSISTED PT WITH SETTING UP TRAY. BIPAP REMOVED FOR NOW. PLACED ON 12L HF NC. DENIES NEEDS OR PAIN AT THIS TIME. CALL LIGHT WITHIN REACH. WILL CONTINUE TO MONITOR.
--- NOTE | 2019-12-14 17:00 | NUR ---
WENT INTO PTs ROOM, IV PUMP SAYING OCCLUDED. IV TO RIGHT UPPER FOREARM OCCLUEDED. D/C WITH CATHETER TIP INTACT. LOOKED FOR ANOTHER PIV AND COULD NOT FIND A VEIN. HAD ANOTHER NURSE LOOK AND SHE STATED THE SAME THING. CALLED CECILY, VASCULAR ACCESS NURSE AND SHE STATED SHE WOULD NOT BE ABLE TO COME OVER UNTIL AFTER 1914.
--- NOTE | 2019-12-14 18:43 | NUR ---
LOOKED IN PT'S ROOM AND HE HAS BIPAP OFF AND IS HANGING HIS FEET OFF THE BED. UPON ENTERING, PT STATED HE WANTED TO GO HOME AND DID NOT WANT TO WEAR HIS MASK (BIPAP) ANYMORE. REFUSED TO LET ME PUT IT BACK ON. PT PLACED ON 12L HF NC. SATS RUNNING 87-90%. SPOKE WITH RESPIRATORY. WILL CONTINUE TO MONITOR.
[2019-12-15] VITALS (23 sets, daily range): BP systolic 140–173; BP diastolic 72–117; Ht 188 cm; Wt 91.2 kg
[2019-12-15 06:49] LABS: BASOPHILS 0 % (0-2); EOSINOPHILS 0 % (0-7); HEMATOCRIT 38.5 % (42.0-54.0); HEMOGLOBIN 12.5 g/dL (13.5-17.5); IMMATURE GRANULOCYTES 0.1 % (0-5); LYMPHOCYTES 4.9 % (15-50); MCH 29.6 pg (26.0-34.0); MCHC 32.5 g/dL (31.0-37.0); MEAN PLATELET VOLUME 10.3 fL (7.4-10.4); MONOCYTES 5.2 % (2-11); NEUTROPHILS 89.8 % (40-80); PLATELET COUNT 186 10x3/uL (130-400); RBC 4.23 10x6/uL (4.20-6.10); RDW 14.7 % (11.5-14.5); WBC 8.3 10x3/uL (4.8-10.8)
[2019-12-15 07:22] LABS: ALBUMIN 2.1 g/dL (3.4-5.0); ANION GAP 14.8 mmol/L (8-16); BILIRUBIN - TOTAL 0.6 mg/dL (0.2-1.3); CALCIUM 9.2 mg/dL (8.5-10.1); CARBON DIOXIDE 25.5 mmol/L (21.0-32.0); CREATININE - SERUM 1.2 mg/dL (0.6-1.3); MAGNESIUM - SERUM 2.3 mg/dL (1.8-2.4); POTASSIUM - SERUM 4.3 mmol/L (3.5-5.1); PROTEIN - SERUM 7.3 g/dL (6.4-8.2)
--- NOTE | 2019-12-15 10:29 | NUR ---
BIPAP REMOVED. PO FLUIDS GIVEN MEDS TAKEN WITHOUT DIFFICULTY. PULSE IN THE UPPER 70'S. WITH PATIENT ON 15 LITERS HIGH FLOW OXYGEN HUMIFIED. PATIENT PLACED BACK ON BIPAP
--- NOTE | 2019-12-15 11:41 | NUR ---
DR. DOMINGO HERE UPDATE GIVEN. NEW ORDERS RECEIVED. PATIENT RESTING COMFORTABLY ON BIPAP.
--- NOTE | 2019-12-15 12:13 | NUR ---
ATTEMPTED IV X 2 WITHOUT SUCCESS. CHARGE NOTIFIED. NO IV ACCESS AVAIALBLE
--- NOTE | 2019-12-15 12:58 | NUR ---
SON CALLED UPDATE GIVEN. STATES HIS FATHER WOULD NOT WANT TO BE ON LIFE SUPPORT. LEFT HIS PHONE FOR THE PHYSICANS TO CALL HIM [phone]
--- NOTE | 2019-12-15 13:27 | NUR ---
DR. MAURER CALLED TO GET UPDATE. ORDERS FOR CENTRAL LINE RECEIVED. CONSENT PER PHONE RECEIVED FROM SON ANTWON PALACIOS.
--- NOTE | 2019-12-15 13:36 | NUR ---
RECEIVED REPORT FROM MACARIO ARNETT. CALLED PHARMACY TO LET THEM KNOW UNABLE TO GIVE ANTIBIOTICS UNTIL A CENTRAL LINE PLACED.
--- NOTE | 2019-12-15 15:03 | NUR ---
PT RESTING QUIETLY. ON BIPAP. VSS. WILL CONTINUE TO MONITOR.
--- NOTE | 2019-12-15 16:44 | NUR ---
DR MIRZA IN TO PLACE CENTRAL LINE.
--- NOTE | 2019-12-15 17:46 | NUR ---
CENTRAL LINE PLACED AND VERIFIED. WILL ADMINISTER ANTIBIOTICS AND FLUID PER ORDER.
--- NOTE | 2019-12-15 19:20 | NUR ---
RECIVED REPORT. PT IS RESTING IN BED WITH EYES CLOSED, BIPAP ON. ISOLATION PROTOCOL OBSERVED. RESTRAINTS OBSERVED WITH GOOD CAP REFILL BILAT HANDS, THAT ARE WARM AND APPROPRIATE. FULL ASSESSMENT PERFOMRED AND WILL DOC IN FLOWSHEET. HIS VSS. HE VOICES"NO" TO ANY PAIN. LEFT SUBCLAVIN IS CDI. ORIENTED TO USE OF CALL LIGHT THAT IS WITHIN REACH. BED IS LOW,SIDE RAILSX2. WILL CONITNUE TO MONITOR
--- NOTE | 2019-12-15 21:02 | NUR ---
PT IS RESTING IN BED WITH EYES CLOSED, BIPAP ON. VSS. NO DISTRESS NOTED. BED IS LOW,SIDE RAILSX2,CALL LIGHT WITHIN REACH. WILL CONINTUE TO MONITOR
--- NOTE | 2019-12-15 23:04 | NUR ---
pt is resting in bed with eyes closed. bipap on, VSS. restraints are observed and doc in flowsheet. re-assessment performed and will doc in flow sheet. voices no need or c/o. bed is low,side raislx2,call light is within reach.
[2019-12-16] VITALS (24 sets, daily range): BP systolic 102–180; BP diastolic 82–117
--- NOTE | 2019-12-16 01:12 | NUR ---
PT IS RESTING IN BED WITH EYES CLOSED, BIPAP ON. VSS. NO DISTRESS NOTED. RESTRAINTS OBSERVED AND DOC ON FLOWSHEET. NO NEEDS OR C/O VOICED. BED IS LOW,SIDE RAISLX2,CALL LIGHT WITHIN REACH. BED ALARM IS ON. WILL CONINTUE TO MONITOR
--- NOTE | 2019-12-16 03:00 | NUR ---
PT IS RESTING IN BED WITH EYES CLOSED. VSS. RESTRAINTS OBSERVED WITH CAP REFILL BELOW 3 SEC, EXTREMTIES WARM BILAT. HE VOICES"I WANT TO GO HOME". I EXPLAIN TO HIM WHERE HE IS AND WHY AND HE VOICES"oK". HE MOVES HIMSELF INDEPENDENTLY IN THE BED. I/O'S DONE. LAD DRAWN. RE-ASSESSMENT DONE. BED IS LOW,SIDE RAISLX2,CALL LIGHT WITHIN REACH. WILL CONITNUE TO MONITOR. BED ALARM IS ON
[2019-12-16 04:05] LABS: BASOPHILS 0 % (0-2); EOSINOPHILS 0.3 % (0-7); HEMATOCRIT 43.7 % (42.0-54.0); HEMOGLOBIN 14.3 g/dL (13.5-17.5); IMMATURE GRANULOCYTES 0.3 % (0-5); LYMPHOCYTES 4.8 % (15-50); MCH 29.5 pg (26.0-34.0); MCHC 32.7 g/dL (31.0-37.0); MCV 90.1 fL (80.0-100.0); MEAN PLATELET VOLUME 10.3 fL (7.4-10.4); MONOCYTES 8.2 % (2-11); NEUTROPHILS 86.4 % (40-80); PLATELET COUNT 161 10x3/uL (130-400); RBC 4.85 10x6/uL (4.20-6.10); RDW 14.4 % (11.5-14.5)
[2019-12-16 04:08] LABS: WBC 5.9 10x3/uL (4.8-10.8)
[2019-12-16 04:14] LABS: ALBUMIN 1.9 g/dL (3.4-5.0); ANION GAP 11.1 mmol/L (8-16); BILIRUBIN - TOTAL 0.55 mg/dL (0.2-1.3); CALCIUM 8.9 mg/dL (8.5-10.1); CREATININE - SERUM 1.3 mg/dL (0.6-1.3); MAGNESIUM - SERUM 2.2 mg/dL (1.8-2.4); POTASSIUM - SERUM 4.1 mmol/L (3.5-5.1)
--- NOTE | 2019-12-16 05:10 | NUR ---
PT IS RESTING IN BED WITH BIPAP ON, EYES CLOSED. VSS. RESTRAINTS OBSERVED AND DOCED IN FLOW SHEET. NO NEEDS OR C/O VOICED.. BED IS LWO,SIDE RAILSX2,CALL LIGHT WITHIN REACH. BED ALARM IS ON
--- NOTE | 2019-12-16 11:37 | NUR ---
0700 REPORT RECEIVED PT ON DROPPLET PRECAUTIONS + COVID ASSESSMENT COMPLETE AFEBRILE WEARING BPAP 100% SATTING 94%
--- NOTE | 2019-12-16 11:40 | NUR ---
0915 DR MAURER ROUNDING ON PATIENT
--- NOTE | 2019-12-16 11:40 | NUR ---
0900 RESTING QUIETLY WITH EYES CLOSED
--- NOTE | 2019-12-16 11:47 | NUR ---
1100 DR DOMINGO CALLED PTS SON, ANTWON PALACIOS UPDATING FAMILY ON PTS CONDITION
[2019-12-17] VITALS (22 sets, daily range): BP systolic 137–167; BP diastolic 88–125
--- NOTE | 2019-12-17 02:38 | NUR ---
PT GIVEN CHG BATH WITH COMPLETE LINEN CHANGE. TOLERATED WELL. WILL CONTINUE TO OBSERVE.
[2019-12-17 05:22] LABS: BASOPHILS 0 % (0-2); EOSINOPHILS 0.4 % (0-7); HEMATOCRIT 36.9 % (42.0-54.0); HEMOGLOBIN 11.7 g/dL (13.5-17.5); IMMATURE GRANULOCYTES 0.7 % (0-5); LYMPHOCYTES 3.4 % (15-50); MCH 28.9 pg (26.0-34.0); MCHC 31.7 g/dL (31.0-37.0); MCV 91.1 fL (80.0-100.0); MEAN PLATELET VOLUME 10.7 fL (7.4-10.4); MONOCYTES 3.2 % (2-11); NEUTROPHILS 92.3 % (40-80); RBC 4.05 10x6/uL (4.20-6.10); RDW 14.3 % (11.5-14.5)
[2019-12-17 05:29] LABS: PLATELET COUNT 197 10x3/uL (130-400)
[2019-12-17 05:52] LABS: ALBUMIN 1.8 g/dL (3.4-5.0); ANION GAP 9.1 mmol/L (8-16); BILIRUBIN - TOTAL 0.8 mg/dL (0.2-1.3); CALCIUM 8.7 mg/dL (8.5-10.1); CARBON DIOXIDE 29.8 mmol/L (21.0-32.0); CREATININE - SERUM 1.2 mg/dL (0.6-1.3); MAGNESIUM - SERUM 2.1 mg/dL (1.8-2.4); POTASSIUM - SERUM 3.9 mmol/L (3.5-5.1); PROTEIN - SERUM 6.6 g/dL (6.4-8.2)
--- NOTE | 2019-12-17 12:30 | NUR ---
Nutrition follow-up: Pt now with worsening pulmonary status PO intake poor 2/2 bipap Labs reviewed Wt: 200# Will need nutrition support started within 24 hours if medically feasible. RDN following.
--- NOTE | 2019-12-17 13:01 | NUR ---
0700 REPORT RECEIVED FROM ROBBI SORTOWET SILK HANGER COMPLETE REMAINS ON BPAP 100% 02 RESPIRATIONS 35
--- NOTE | 2019-12-17 13:06 | NUR ---
0900 REPOSITIONED ON BED FOR COMFORT
--- NOTE | 2019-12-17 13:09 | NUR ---
1100 MOVES ON BED SPOKE WITH FAMILY REGARDING INTUBATION. FAMILY WANTED MORE INFORMATION PRIOR TO MAKING A DECISION FOR LIFE SUPORT
--- NOTE | 2019-12-17 13:10 | NUR ---
1300 DR ELISABETH CORRAL ON PATIENT DR BARBER SPOKE WITH PTS SON, ANTWON PALACIOS, PROVIDING HELPFUL INFO REGARDING INTUBATION HE ALSO STRESSED THE IMPORTANCE OF MAKING A QUICK DECISION PT IS ON BPAP 100% AT PRESENT RESP 28 - 38
--- NOTE | 2019-12-17 17:13 | NUR ---
1500 PTS SAT DROPPING TO [address] BP[address] 100% DR BARBER WANTING TO INTUBATE NOW. DR CENTENO ON UNIT WITH INTUBATION CART PTS SON CALLED AT THIS TIME, AND WAS INFORMED OF PENDING INTUBATION. SON SAID 'STOP' HE DOESNT ATHORIZED INTUBATION. CALLED DR BARBER TO COME TO PHONE TO SPEAK WITH FAMILY MEMBER. DR BARBER SPOKE WITH FAMILY MEMBER FOR 15 MINUTES GIVING EXPLAINATION AND NEED FOR INTUBATION AT THIS TIME. FAMILY MEMBER WAS INSISTANT THAT WE NOT INTUBATE. TI GONZALEZ RN SPOKE WITH THE SON AND SERVED WITNESS THAT HE DID NOT WANT HIS FATHER INTUBATED
--- NOTE | 2019-12-17 17:23 | NUR ---
DR BARBER SPOKE WITH FAMILY ON THE PHONE. THEY STATED THAT THEY DID NOT WANT HIM INTUBATED. I SPOKE WITH FAMILY TO VERIFY THAT THEY DID NOT WANT PT INTUBATED. THEY TOLD ME THEY DID NOT WANT THE PATIENT INTUBATED.
--- NOTE | 2019-12-17 18:16 | NUR ---
FAMILY CALLED, ANTWON PALACIOS STATES, "I THINK THERE IS A LITTLE CONFUSION, WE DO WANT MY DAD TO BE A FULL CODE. IF HE QUITS BREATHING WE WANT EVERYTHING DONE. STATES, "I THINK WE NEED CLARIFICATION." SON STATES, "IF HE CODES EVERYTHING INCLUDING INTUBATION." INSTRUCT TO SON WILL COMMUNICATE THIS TO DR BARBER. OBTAIN COMFIRMATION FROM SON TO INTUBATE PT IF CODING BUT NOT UNTIL PATIENT CODES.
[2019-12-18] VITALS (24 sets, daily range): BP systolic 120–175; BP diastolic 81–118
[2019-12-18 05:31] LABS: BASOPHILS 0 % (0-2); EOSINOPHILS 0 % (0-7); HEMATOCRIT 37.9 % (42.0-54.0); IMMATURE GRANULOCYTES 0.2 % (0-5); LYMPHOCYTES 4.2 % (15-50); MCH 28.9 pg (26.0-34.0); MCHC 31.7 g/dL (31.0-37.0); MCV 91.3 fL (80.0-100.0); MEAN PLATELET VOLUME 10.6 fL (7.4-10.4); MONOCYTES 3.6 % (2-11); PLATELET COUNT 189 10x3/uL (130-400); RBC 4.15 10x6/uL (4.20-6.10); RDW 14.3 % (11.5-14.5); WBC 5.9 10x3/uL (4.8-10.8)
[2019-12-18 05:48] LABS: ALBUMIN 1.7 g/dL (3.4-5.0); ANION GAP 7.8 mmol/L (8-16); BILIRUBIN - DIRECT 0.37 mg/dL (0.00-0.30); BILIRUBIN - INDIRECT 0.54 mg/dL (0.00-1.00); BILIRUBIN - TOTAL 0.91 mg/dL (0.2-1.3); CALCIUM 8.4 mg/dL (8.5-10.1); CARBON DIOXIDE 29.2 mmol/L (21.0-32.0); CREATININE - SERUM 1.2 mg/dL (0.6-1.3); PROTEIN - SERUM 6.6 g/dL (6.4-8.2)
--- NOTE | 2019-12-18 07:00 | NUR ---
ASSESSMENT COMPLETE PER FLOWSHEET. PT ON 100% FIO2 ON BIPAP. O2 SAT 92 PERCENT. BATH GIVEN. LINENS CHANGED. VOICES CO BEING THIRSTY AND HUNGRY. INSTRUCT TO PT ON 100 PERCENT FIO2 AND IF BIPAP REMOVED COULD END UP RESPIRATORY ARRESTING.
--- NOTE | 2019-12-18 10:00 | NUR ---
SLEEPING NO DISTRESS NOTED. CONTINUE TO BE IN RESTRAINTS.
--- NOTE | 2019-12-18 12:30 | NUR ---
SON CALLED FOR UPDATE.; INSTRUCT PT ON 100 PERCENT FIO2. AFTER THAT THE ONLY WAY TO INCREASE PO2 IS INTUBATION. WILL GET ABGS AND SEE WHAT PO2 IS. SON STATES HE WILL CALL BACK.
--- NOTE | 2019-12-18 13:30 | NUR ---
RESP OBTAINING ABGS.
--- NOTE | 2019-12-18 15:14 | NUR ---
SLEEPING NO DISTRESS NOTED. ON BIPAP FIO2 CONT TO BE 100 PERCENT.
[2019-12-19] VITALS (27 sets, daily range): BP systolic 0–180; BP diastolic 0–120
[2019-12-19 05:43] LABS: BASOPHILS 0 % (0-2); EOSINOPHILS 0 % (0-7); HEMATOCRIT 39.4 % (42.0-54.0); HEMOGLOBIN 12.5 g/dL (13.5-17.5); IMMATURE GRANULOCYTES 0.2 % (0-5); LYMPHOCYTES 3.4 % (15-50); MCHC 31.7 g/dL (31.0-37.0); MCV 91.4 fL (80.0-100.0); MEAN PLATELET VOLUME 10.4 fL (7.4-10.4); MONOCYTES 5.5 % (2-11); NEUTROPHILS 90.9 % (40-80); PLATELET COUNT 212 10x3/uL (130-400); RBC 4.31 10x6/uL (4.20-6.10); RDW 14.4 % (11.5-14.5)
[2019-12-19 06:16] LABS: WBC 8.8 10x3/uL (4.8-10.8)
[2019-12-19 06:17] LABS: ALBUMIN 2.1 g/dL (3.4-5.0); ANION GAP 12.4 mmol/L (8-16); BILIRUBIN - DIRECT 0.3 mg/dL (0.00-0.30); BILIRUBIN - INDIRECT 0.47 mg/dL (0.00-1.00); BILIRUBIN - TOTAL 0.77 mg/dL (0.2-1.3); CALCIUM 9.1 mg/dL (8.5-10.1); CARBON DIOXIDE 27.7 mmol/L (21.0-32.0); CREATININE - SERUM 1.2 mg/dL (0.6-1.3); MAGNESIUM - SERUM 2.5 mg/dL (1.8-2.4); PHOSPHOROUS 2.9 mg/dL (2.5-4.9); POTASSIUM - SERUM 4.1 mmol/L (3.5-5.1); PROTEIN - SERUM 6.8 g/dL (6.4-8.2)
[2019-12-19 06:20] LABS: C-REACTIVE PROTEIN 29.4 mg/dL (0.0-0.9)
--- NOTE | 2019-12-19 13:05 | NUR ---
Nutrition follow-up: Pt with BIPAP on continuously Pt has a diet but is unable to tolerate eating at this time Labs reivewed Wt: 201# Will need nutrition support started within [address] RDN following.
--- NOTE | 2019-12-19 15:00 | NUR ---
GAVE PT MOUTH CARE AND A DRINK OF WATER. BIPAP PLACED BACK ON.
--- NOTE | 2019-12-19 16:00 | NUR ---
TRYING TO PULL OFF BIPAP. RESTRAINED. BIPAP FIXED. INSTRUCT NOT TO TAKE OFF.
--- NOTE | 2019-12-19 19:00 | NUR ---
PT HR 33. CODE BLUE. SEE CODE BLUE SHEET.
--- NOTE | 2019-12-19 19:11 | NUR ---
HR IN 30'S AND THEN ASYSTOLE, BIPAP IN USE NOT BREATHING, PC TO MARTHA PALACIOS, LM TO CALL HOSPITAL, PC TO CHIRAG MAXWELL GIVEN ABOVE INFO, LET HER KNOW NOW PATIENT IS UNRESPONSIVE, CODE BLUE TEAM AT BEDSIDE, AND BEING CODED
--- NOTE | 2019-12-19 19:40 | NUR ---
PC FROM DAUGHTER CORRINE OCHOA, STATUS UPDATED, STATED SHE WILL TRY TO GET IN CONTACT WITH HER BROTHER ANTWON, TO HAVE HIM CALL BACK 1942 PC FROM ANTWON, UPDATED RE: CHANGE IN STATUS, WILL COME IN TO SPEAK WITH NURSES
[2019-12-20] VITALS (28 sets, daily range): BP systolic 115–155; BP diastolic 69–101
[2019-12-20 06:58] LABS: BASOPHILS 0.1 % (0-2); EOSINOPHILS 0 % (0-7); HEMATOCRIT 38.5 % (42.0-54.0); IMMATURE GRANULOCYTES 0.3 % (0-5); MCH 29.3 pg (26.0-34.0); MCHC 31.2 g/dL (31.0-37.0); MEAN PLATELET VOLUME 10.2 fL (7.4-10.4); MONOCYTES 4.6 % (2-11); PLATELET COUNT 221 10x3/uL (130-400); RBC 4.09 10x6/uL (4.20-6.10); RDW 14.9 % (11.5-14.5)
[2019-12-20 07:01] LABS: MCV 94.1 fL (80.0-100.0); WBC 13.2 10x3/uL (4.8-10.8)
[2019-12-20 07:20] LABS: ALBUMIN 2.2 g/dL (3.4-5.0); BILIRUBIN - DIRECT 0.49 mg/dL (0.00-0.30); BILIRUBIN - INDIRECT 0.39 mg/dL (0.00-1.00); BILIRUBIN - TOTAL 0.88 mg/dL (0.2-1.3); CALCIUM 8.4 mg/dL (8.5-10.1); MAGNESIUM - SERUM 2.5 mg/dL (1.8-2.4); PROTEIN - SERUM 6.5 g/dL (6.4-8.2)
[2019-12-20 07:29] LABS: ANION GAP 11.9 mmol/L (8-16); CREATININE - SERUM 1.9 mg/dL (0.6-1.3); PHOSPHOROUS 5.4 mg/dL (2.5-4.9); POTASSIUM - SERUM 4.9 mmol/L (3.5-5.1)
[2019-12-21] VITALS (25 sets, daily range): BP systolic 102–182; BP diastolic 69–110
[2019-12-21 06:36] LABS: BASOPHILS 0.2 % (0-2); EOSINOPHILS 0 % (0-7); HEMATOCRIT 38.7 % (42.0-54.0); HEMOGLOBIN 11.8 g/dL (13.5-17.5); IMMATURE GRANULOCYTES 0.6 % (0-5); LYMPHOCYTES 6.2 % (15-50); MCHC 30.5 g/dL (31.0-37.0); MCV 95.1 fL (80.0-100.0); PLATELET COUNT 192 10x3/uL (130-400); RBC 4.07 10x6/uL (4.20-6.10); RDW 15.2 % (11.5-14.5); WBC 10.9 10x3/uL (4.8-10.8)
[2019-12-21 06:52] LABS: ALBUMIN 2.3 g/dL (3.4-5.0); BILIRUBIN - DIRECT 0.43 mg/dL (0.00-0.30); BILIRUBIN - INDIRECT 0.34 mg/dL (0.00-1.00); BILIRUBIN - TOTAL 0.77 mg/dL (0.2-1.3); CALCIUM 8.7 mg/dL (8.5-10.1); CARBON DIOXIDE 27.5 mmol/L (21.0-32.0); POTASSIUM - SERUM 5.2 mmol/L (3.5-5.1); PROTEIN - SERUM 6.5 g/dL (6.4-8.2)
[2019-12-21 06:54] LABS: ANION GAP 11.7 mmol/L (8-16); CREATININE - SERUM 2.6 mg/dL (0.6-1.3)
--- NOTE | 2019-12-21 12:58 | NUR ---
Nutrition Follow-up: Intubated/sedated. Receiving Procal @ 50 (provides 294 kcal, 36 g protein daily). Wt: 201# (12/12) Labs noted: Na 149, K+ 5.2, Glu 127, Alb 2.3 Meds noted: Albumin, Pepcid, NS @ 30, electrolyte protocol -Procal inadequate to meet needs. Rec consider TF as medically indicated and/or desired. -Monitor wt. -RD following.
--- NOTE | 2019-12-21 19:25 | NUR ---
RECIVED REPORT. PT IS CALM, RESTING INTUBATED/SEDATED. VSS. ISOLATION PERCAUTIONS OBSERVED. RESTRAINTS OBSERVED. DURING REPORT, ASHLEY SORTO INFORMED ME THAT PT NEEDS VERSED Q2H ORDERED DUE TO SEVERE RESTLESSNESS AND CHANGE IN VS WHEN NOT GIVEN. OXYGEN SATURATION WILL DROP EXCESSIVLY IF NOT GIVEN TO HELP KEEP HIM CALM. HE IS CALM AT THIS TIME. RIGHT SUBCLAVIN IS CDI, TERRY OBSERVED BY GRAVITY AND DRAINING. FULL ASSESSMENT DONE AND WILL DOC IN FLOWSHEET. BED IS LOW,SIDE RAILSX2,CALL LIGHT WITHIN REACH. WILL CONITNUE TO MONITOR
--- NOTE | 2019-12-21 20:42 | NUR ---
alarm sounding on moniitor. PT O2 SATURATION IS AT 85% AND TRENDING DOWN. PT IS BREATHING OVER VENT AT 40 BREATH PER MINUTE. HR IS 105 IT IS NOT TIME FOR VERSED PRN. GAVE 50MCG FENTYLE BOLUS X2 IN ORDER FOR THE PT TO SLOW HIS BREATHING DOWN TO 25RR. HIS OXYGEN SATURATION IS NOW AT 98% ON 100% MECHANICAL VENTILATION, AND HR HAS COME DOWN TO 83 NS. WILL CONITNUE TO MONITOR
--- NOTE | 2019-12-21 21:42 | NUR ---
PT IS CALM/INTUBATED/SEDATED AT THIS TIME. VSS. BED IS LOW,SIDE RAISLX2,CALL LIGHT WITHIN REACH. WILL CONITNUE TO MONITOR
--- NOTE | 2019-12-21 23:13 | NUR ---
PT IS RESTING IN BED CALM/INTUBATED/SEDATED. VSS. ORAL CARE PROVIDED AND TOLERATED WELL. RESTRATINTS OBSERVED AND DOC IN FLOWSHEET. RE-ASSESSMENT DONE AND WILL DOC IN FLOWSHEET. BED IS LEFT LOW,SIDE RAISLX2,CALL LIGHT WITHIN REACH. WILL CONITNUE TO MONITOR
[2019-12-22] VITALS (24 sets, daily range): BP systolic 91–161; BP diastolic 64–105
--- NOTE | 2019-12-22 01:01 | NUR ---
pt is calm/intubated/sedated. VSS. bed is low, side railx2, call light within reach. will continue to monitor
--- NOTE | 2019-12-22 03:00 | NUR ---
PT IS CALM/INTUABTED/SEDATED. VSS. RE-ASSESSMENT DONE AND WILL CHART IN FLOWSHEET. ORAL CARE IS PROVIDED. I/O'S DONE. CHANGED OUT OG TUBING/FEEDING TO NEPRO ORDERED. BED IS LEFT LOW,SIDE RAILSX2,CALL LIGHT WTIHIN REACH. WILL CONITNUE TO MONITOR
--- NOTE | 2019-12-22 05:15 | NUR ---
PT IS RESTING/CALM/INTUBATED/SEDATED. VSS. ORAL CARE PROVIDED. SCD'S ON. HEELS BRIDGED OFF BED. HEELS BRIDGED OFF BED. BED IS LOW,SIDE RAILSX2,CALL LIGHT WITHIN REACH. WILL CONINTUE TO MONITOR
--- NOTE | 2019-12-22 06:32 | NUR ---
ALARM SOUNDING FROM MONITOR. PT OXYGEN SATURATION IS AT 78%, PT IS BREATHING 40 BREATHS PER MINUTE AND PULLING AT RESTRAINTS. GAVE 50MCG BOLUSX2 TO HELP CALM PT TO SLOW BREATHING DOWN AND STOP FIGHTING THE VENT. OXYGEN SATURATION CAME BACK UP TO 94% WITHIN A FEW MINUTES. INCREASED CONTINUOUS DOSE TO 600MCG/MIN AT THIS TIME. ALL OTHER VS ARE STABLE. BED IS LOW,SIDE RAISLX2,CALL LIGHT WITHIN REACH. WILL CONTINUE TO MONITOR
[2019-12-22 07:43] LABS: BASOPHILS 0.1 % (0-2); EOSINOPHILS 0 % (0-7); HEMATOCRIT 34.8 % (42.0-54.0); HEMOGLOBIN 10.6 g/dL (13.5-17.5); IMMATURE GRANULOCYTES 0.4 % (0-5); LYMPHOCYTES 3.6 % (15-50); MCHC 30.5 g/dL (31.0-37.0); MCV 95.3 fL (80.0-100.0); MEAN PLATELET VOLUME 10.9 fL (7.4-10.4); NEUTROPHILS 91.9 % (40-80); PLATELET COUNT 170 10x3/uL (130-400); RBC 3.65 10x6/uL (4.20-6.10); RDW 15.5 % (11.5-14.5); WBC 9.6 10x3/uL (4.8-10.8)
[2019-12-22 07:48] LABS: ANION GAP 8.7 mmol/L (8-16); CALCIUM 8.4 mg/dL (8.5-10.1); CARBON DIOXIDE 27.4 mmol/L (21.0-32.0); POTASSIUM - SERUM 5.1 mmol/L (3.5-5.1)
--- NOTE | 2019-12-22 07:51 | NUR ---
0700 REPORT RECEIVED FROM OUTGOING MARKETING TEAM LEAD COMPLETE PRN VERSED GIVEN PER NIGHT NURSE
--- NOTE | 2019-12-22 12:55 | NUR ---
0900 PTS SON, ANTWON, CALLED FOR AN UPDATE
--- NOTE | 2019-12-22 12:56 | NUR ---
1100 REPOSITIONED IN BED ORAL CARE PROVIDED
--- NOTE | 2019-12-22 12:57 | NUR ---
1200 DR BARBER ROUNDING ON PT MAKING CHANGES TO VENT
--- NOTE | 2019-12-22 15:40 | NUR ---
1300 VENT SETTING DECREASED TO FIO2 90%
--- NOTE | 2019-12-22 15:42 | NUR ---
1405 SATTING IN THE 70'S RT PRESENT AND TURNED FIO2 BACK UP TO 100% SEVERAL TIMES ALTERNATING WITH 90% EACH TIME ON 90% THE PTS SAT DROPPED INTO THE MID 70'S AND WHILE AT FIO2 100% HIS O2 SAT WAS 100%. FIO2 NOW REMAINS 100% TOLERATING WELL
--- NOTE | 2019-12-22 17:14 | NUR ---
1600 CHANGED CENTRAL LINE DRESSING
--- NOTE | 2019-12-22 19:00 | NUR ---
RECIVED REPORT. ISOLATION PROTOCOL OBSERVED. PT IS CALM/INTUBATED/SEDATED AT THIS TIME. VSS. LEFT SUB-CLAVIN CDI, TERRY OBSERVED BELOW BLADDER AND DRAINING. FULL ASSESSMENT WILL DOC IN FLOWSHEET. BED IS LOW,SIDE RAISLX2,CALL LIGHT WITHIN REACH. WILL CONITNUE TO MONITOR
--- NOTE | 2019-12-22 19:20 | NUR ---
RT IS AT BEDSIDE PERFORMIGN ORAL CARE. PT IS AGITATED. RT SUCTIONED BIG MUCUS PLUG OUT. WILL GIVE PRN VERSED ORDERED FOR AGITATION. VSS AT THIS TIME. BED IS LOW,SIDE RAISLX2,CALL LIGHT WITHIN REACH. WILL CONITNUE TO MONITOR
--- NOTE | 2019-12-22 20:50 | NUR ---
ALARM MONITOR IS GOING OFF. PT O2 SATURATION IS 78% AND RR ARE AT 38/MIN. PT IS PULLING AT RESTRAINTS AND MOVING HEAD BACK AND FORTH. WILL INITATE DIPRIVAN ORDERED TO HELP KEEP PT CALM. WILL SCAN ON JUL.
--- NOTE | 2019-12-22 21:00 | NUR ---
AFTER STARTING DIPRIVAN AT 5MCG/MIN ORDERED. PT VSS ARE STABLE. RR ARE AT25. OXYGEN SATURATON IS NOW AT 100% AND PT IS NO LONGER AGITATED. WILL CONTINUE TO MONITOR
--- NOTE | 2019-12-22 23:10 | NUR ---
PT IS RESTING IN BED CALM/INTUBATED/SEDATED. VSS. RE-ASSESSMENT DONE AND WILL DOC IN FLOWSHEET. TURNED FOR COMFORT AND FEET ARE BRIDGED OFF BED. BED IS LOW,SIDE RAISLX2,CALL LIGHT WITHIN REACH. WILL CONITNUE TO MONITOR
[2019-12-23] VITALS (25 sets, daily range): BP systolic 96–135; BP diastolic 65–90
--- NOTE | 2019-12-23 01:00 | NUR ---
PT IS CALM/INTUBATED/SEDATED. VSS. NO DISTRESS. WILL CONITNUE TO MONITOR
--- NOTE | 2019-12-23 02:51 | NUR ---
PT IS CALM/INTUBATED/SEDATED. VSS. NO DISTRESS AT THIS TIME. REPOSITIONED FOR COMFORT. HEELS ARE BRIDGED OFF BED. RE-ASSESSMENT DONE AND WILL DOC IN FLOWSHEET. ORAL CARE PROVIDED. BED IS LOW,SIDE RAISLX2,CALL LIGHT MALGORZATA ALEJANDRE. WILL CONINTUE TO MONITOR
--- NOTE | 2019-12-23 04:25 | NUR ---
PT ALARM GOING OFF IN ROOM. OXYGEN SATURATION IS AT 87%. UPONE ARRIVING IN ROOM I NOTE WHAT SOUNDS TO BE A CUFF LEAK IN THE ETT. INFORMED RT AND THEY CAME AND INCREASED CUFF PREASSURE. OXYGEN SATURATION IMPROVED BACK TO 100%. ALL OTHER VSS. NO DISTRESS NOTED. BED IS LEFT LOW,SIDE RAISLX2,CALL LIGHT WTIHIN REACH.
--- NOTE | 2019-12-23 05:00 | NUR ---
ALARM MONITOR SOUNDING FROM PT ROOM. OXYGEN SATUATION IS 76% AND TRENDING DOWN. UPON ARRIVING INTO ROOM, I NOTED WHAT SEEMED TO SOUND LIKE A CUFF LEAK AGAIN. RT WAS PAGED AND GOT TO BEDSIDE QUICKLY. RT AND I WERE UNABLE TO FIX ETT TO VENTILATE PT PROPERLY. PT WAS NOT PULLING IN ANY TITAL VOLUME. PAGED TO RE-INTUBATE. RT AND I WERE AT PT BEDSIDE UNTILL ARRIVED.
--- NOTE | 2019-12-23 07:19 | NUR ---
0700 DR CENTENO ARRIVED AND REINTUBATED PATIENT WITH EET SIZE 8 AND 22 AT [facility] OGT ALSO PLACED STAT CXR COMPLETE PLACEMENT VERIFIED VIA CXR DR CENTENO AWARE RETURNED TO ORIGINAL VENT SETTINGS AC-25 FIO2 100% TV-550 PEEP 14 MAINTAINS 100% 02 SAT ON MONITOR
[2019-12-23 11:27] LABS: BASOPHILS 0 % (0-2); EOSINOPHILS 0 % (0-7); HEMATOCRIT 36.1 % (42.0-54.0); IMMATURE GRANULOCYTES 0.7 % (0-5); LYMPHOCYTES 3.5 % (15-50); MCH 29.2 pg (26.0-34.0); MCHC 30.5 g/dL (31.0-37.0); MCV 95.8 fL (80.0-100.0); MEAN PLATELET VOLUME 10.9 fL (7.4-10.4); NEUTROPHILS 91.8 % (40-80); PLATELET COUNT 162 10x3/uL (130-400); RBC 3.77 10x6/uL (4.20-6.10); RDW 15.5 % (11.5-14.5); WBC 11.6 10x3/uL (4.8-10.8)
[2019-12-23 11:41] LABS: ALBUMIN 1.7 g/dL (3.4-5.0); ALKALINE PHOSPHATASE 96 U/L (30-120); CALC OSMOLALITY 325 mosm/kg (275-300); CARBON DIOXIDE 25.8 mmol/L (21.0-32.0); CHLORIDE - SERUM 115 mmol/L (98-107); GLUCOSE 154 mg/dL (74-106); POTASSIUM - SERUM 5.3 mmol/L (3.5-5.1); PROTEIN - SERUM 3.3 g/dL (6.4-8.2); SODIUM 148 mmol/L (136-145); UREA NITROGEN 93 mg/dL (7-18)
[2019-12-23 11:42] LABS: CREATININE - SERUM 0.2 mg/dL (0.6-1.3)
[2019-12-23 11:43] LABS: ALT (SGPT) 5 U/L (10-68); CALCIUM 6.1 mg/dL (8.5-10.1); eGFR NON AFRICAN AMERICAN > 90 mL/min (90-120)
--- NOTE | 2019-12-23 11:45 | NUR ---
1102 INCREASED PROPOFOL UP TO 50 MCG/KG/MIN IN INCREMENTS ASKED BY DR BARBER WHO WAS AT BEDSIDE UNTIL PATIENT RELAXED AND SLOWED HIS RESPIRATORY RATE TO LESS THAN 28 BPM. PT RELAXED AND NOT STRUGGLING SO HARD TO BREATHE O2 SAT CLIMBED UP TO 100%
--- NOTE | 2019-12-23 13:27 | NUR ---
0900 02 SAT DROPPING TO 73% RN AND RT ST BEDSIDE HEART RATE REMAINS STABLE RR RAPID INCREASED PROPOFOL INFUSOION RT CALLED DR BARBER AND BARON BLOOD GASSES
--- NOTE | 2019-12-23 13:31 | NUR ---
1000 LISTENING FOR CORRECT PLACEMENT OF OGT NO AIR BOLUS COULD BE PUSHED THROUGH THE OGT. REMOVED OGT AND FOUND MULTI KINKS IF APPEARRED TO BE KNOTTED UP IN THE BACK OF THE THROAT REPLACED GASTRIC TUBE 18 FR THROUGH THE RIGHT NARE CALLED FOR ABD XR FOR VERIFICATION
[2019-12-23 13:51] LABS: ANION GAP 13.3 mmol/L (8-16); CARBON DIOXIDE 24.5 mmol/L (21.0-32.0); POTASSIUM - SERUM 5.8 mmol/L (3.5-5.1)
[2019-12-23 13:52] LABS: CALCIUM 8.5 mg/dL (8.5-10.1); CREATININE - SERUM 3.2 mg/dL (0.6-1.3)
--- NOTE | 2019-12-23 17:38 | NUR ---
1210 ADVANCED NGT APPROXIMATELY 10-[address] ZULETA, RADIOLOGIST VERIFIED PLACEMENT WITH 10 ML AIR BOLUS.
--- NOTE | 2019-12-23 19:30 | NUR ---
PT SEDATED, ETT PATENT TO VENT, LUNGS CLEAR, LEFT TLSC INTACT WITH IVF'S INFUSING, NG TUBE INCACT WITH NEPRO @ 30CC/HR, 15CC RESIDUAL NOTED, GENERALIZED EDEMA, BILAT SWR IN USE, TERRY PATENT TO BSD, NO DISTRESS NOTED
[2019-12-24] VITALS (12 sets, daily range): BP systolic 90–102; BP diastolic 64–67
[2019-12-24 05:44] LABS: BILIRUBIN - TOTAL 0.52 mg/dL (0.2-1.3); CALCIUM 8.4 mg/dL (8.5-10.1); CARBON DIOXIDE 22.4 mmol/L (21.0-32.0); MAGNESIUM - SERUM 3.4 mg/dL (1.8-2.4); PHOSPHOROUS 5.6 mg/dL (2.5-4.9); POTASSIUM - SERUM 5.4 mmol/L (3.5-5.1)
[2019-12-24 05:45] LABS: ALBUMIN 2.2 g/dL (3.4-5.0); CREATININE - SERUM 4.2 mg/dL (0.6-1.3); PROTEIN - SERUM 5.9 g/dL (6.4-8.2)
[2019-12-24 07:10] LABS: BASOPHILS 0.1 % (0-2); EOSINOPHILS 0 % (0-7); HEMATOCRIT 29.9 % (42.0-54.0); HEMOGLOBIN 9.1 g/dL (13.5-17.5); IMMATURE GRANULOCYTES 1.2 % (0-5); LYMPHOCYTES 5.9 % (15-50); MCH 28.9 pg (26.0-34.0); MCHC 30.4 g/dL (31.0-37.0); MCV 94.9 fL (80.0-100.0); MEAN PLATELET VOLUME 11.5 fL (7.4-10.4); MONOCYTES 2.2 % (2-11); NEUTROPHILS 90.6 % (40-80); PLATELET COUNT 138 10x3/uL (130-400); RBC 3.15 10x6/uL (4.20-6.10); RDW 15.6 % (11.5-14.5)
--- NOTE | 2019-12-24 11:04 | NUR ---
Nutrition follow-up: Pt intubated, sedated with propofol @ 11.1 ml/hr Nepro infusing @ 40 ml/hr Labs reviewed; BUN, Cr elevated Wt: 200# RDN following.
--- NOTE | 2019-12-24 16:32 | NUR ---
8621 CODE CALLED PLEASE SEE CODE SHEET
--- NOTE | 2019-12-24 16:34 | NUR ---
1430 ENDING OF CODE MAINTAINING HEART RATE PER EXTERNAL PACER MODE PT REMAINS ON VENT FAMILY WAS NOTIFIED AND SON, ANTWON PALACIOS IS ON UNIT DNR FORMED IS SIGNED BY SAID SON
--- NOTE | 2019-12-24 16:38 | NUR ---
CARE WAS WITHDRAWN AT 1545 TIME OF WAS 1548 DR CHRIS HEBERT PRESENT PRONOUNCED AT 1600 [place] WAS NOTIFIED SPOKE WITH [facility] RE[facility] NUMBER [id number] [employer] FRYER RONALD YOUSSEF WAS NOTIFIED AND RELEASED BODY WAITING FOR RETURN CALL FROM [facility] [phone]
--- NOTE | 2019-12-24 17:52 | NUR ---
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
--- NOTE | 2019-12-24 18:55 | NUR ---
[address] [facility] HAS NOW EXITED WITH MR FANNY PALACIOS
== END 2019-12-24 18:55 | DRG 207 ==
LOC: D.ER 02:41 → D.EDHOLD 05:54 → D.ICU 05:54
PROVIDERS: Emergency Medicine; Family Medicine; Internal Medicine Nephrology; Internal Medicine Pulmonary Disease; ADMIT Family Medicine; ATTEND Family Medicine
PROC: 0BH17EZ Insertion of Endotracheal Airway into Trachea, Via Natural or Artificial Opening (ICD-10-PCS; principal; 2019-12-19)
PROC: 5A1955Z Respiratory Ventilation, Greater than 96 Consecutive Hours (ICD-10-PCS; 2019-12-19)
DX: U07.1 COVID-19 (principal); J96.01 Acute respiratory failure with hypoxia; J18.9 Pneumonia, unspecified organism; I50.23 Acute on chronic systolic (congestive) heart failure; J44.1 Chronic obstructive pulmonary disease with (acute) exacerbation; N17.9 Acute kidney failure, unspecified; I13.0 Hypertensive heart and chronic kidney disease with heart failure and stage 1 through stage 4 chronic kidney disease, or unspecified chronic kidney disease; J44.0 Chronic obstructive pulmonary disease with (acute) lower respiratory infection; I25.10 Atherosclerotic heart disease of native coronary artery without angina pectoris; E87.6 Hypokalemia; D64.9 Anemia, unspecified; N18.9 Chronic kidney disease, unspecified; E78.5 Hyperlipidemia, unspecified; N28.1 Cyst of kidney, acquired